=== PATIENT | female | born 1975 ===

== ENCOUNTER → 2021-10-13 | Day surgery (SDC) | payer OTHER ==
[~2021-10-13] VITALS: Ht 162.6 cm; Wt 108.4 kg
[~2021-10-13] MED LIST: ELAVIL25 MG PO; EMGALITY S120 MG/1 M IJ; IRON325 M1 PO; TOPAMAX100 MG PO; TUMERIC PO; VITAMIN D310 MCG PO
[2021-10-13 06:52] LABS: HCG (URINE) SCREEN NEGATIVE (NEGATIVE)
[2021-10-13 07:32] LABS: HCT 42.7 % (37.0-47.0); HGB 14.5 g/dl (12.5-16.0); MCH 28.3 pg (25.0-31.0); MCV 83.4 fL (78.0-100.0); MPV 9.7 fL (6.0-9.5); RBC 5.12 M/uL (4.20-5.40); RDW 12.8 % (11.5-14.0); WBC 10.8 K/uL (4.0-10.5)
== END | disposition home or self-care (01) ==
LOC: FAS 08-18 07:30
PROVIDERS: Specialist
DX: N80.0 Endometriosis of uterus (principal); N73.6 Female pelvic peritoneal adhesions (postinfective); N71.1 Chronic inflammatory disease of uterus; N00-N99 Diseases of the genitourinary system; N72 Inflammatory disease of cervix uteri; N87.9 Dysplasia of cervix uteri, unspecified; N83.202 Unspecified ovarian cyst, left side; N83.201 Unspecified ovarian cyst, right side; N83.8 Other noninflammatory disorders of ovary, fallopian tube and broad ligament; Z98.51 Tubal ligation status; Z98.890 Other specified postprocedural states; E66.01 Morbid (severe) obesity due to excess calories
CPT/HCPCS: 36415; 84703; 86850; 86900; 86901; J0690; J1170; J1885; J2250; J2370; J2405; J2704; J3010; J7120; Q9968